=== PATIENT | male | born 1970 | race Caucasian/White ===

== ENCOUNTER 2019-08-01 16:00 | Inpatient (IN) | payer BC, OTHER ==
[2019-08-01] MEDS ORDERED: HYDROmorphone 0.5 MG/0.5 ML Syringe IVPUSH ONE (16:49)
[2019-08-01] MEDS ORDERED: Ondansetron 4 MG/2 ML SDV IVPUSH ONE (16:49)
[2019-08-01] MEDS ORDERED: Sodium Chloride 0.9% 1,000 ML IV ONE (16:49)
--- NOTE | 2019-08-01 16:54 | EDM.PDOC ---
ED HPI GENERAL MEDICAL PROBLEM - General Chief Complaint: Abdominal Pain Stated Complaint: MEDICAL Time Seen by Provider: 08/01/19 16:30 Source of Information: Reports: Patient, Other (Physician from [facility] called me ahead of time to review the patient with me) History Limitations: Reports: No Limitations - History of Present Illness INITIAL COMMENTS - FREE TEXT/NARRATIVE: Abdominal pain 3 days which started as periumbilical and now has moved to the lower abdomen. Initially evaluated in clinic where white blood cell count was noted to be 13,100 with normal electrolytes. Onset: Today Duration: Day(s): (3), Getting Worse Location: Reports: Abdomen Quality: Reports: Sharp Severity: Severe Lower Abdominal Pain Score (Numeric/FACES): 4 - Related Data Allergies Allergy/AdvReac Type Severity Reaction Status Date / Time Penicillins Allergy Hives Verified 08/01/19 16:25 Home Meds: Home Meds NK [No Known Home Meds] 08/01/19 [History] Past Medical History HEENT History: Reports: Allergic Rhinitis Respiratory History: Reports: Asthma Gastrointestinal History: Reports: Diverticulosis Musculoskeletal History: Reports: Fracture Immunologic History: Reports: Other (See Below) Other Immunologic History: MRSA cellulitis, healed right arm - Infectious Disease History Infectious Disease History: Reports: MRSA - Past Surgical History Musculoskeletal Surgical History: Reports: ORIF, Other (See Below) Other Musculoskeletal Surgeries/Procedures:: right ankle pins and screws Social & Family History - Tobacco Use Smoking Status *Q: Never Smoker - Caffeine Use Caffeine Use: Reports: Coffee - Recreational Drug Use Recreational Drug Use: No ED ROS GENERAL - Review of Systems Review Of Systems: See Below Constitutional: Reports: Fever, Malaise, Weakness, Decreased Appetite Respiratory: Denies: Shortness of Breath, Wheezing Cardiovascular: Denies: Chest Pain Endocrine: Reports: Fatigue GI/Abdominal: Reports: Abdominal Pain, Decreased Appetite. Denies: Vomiting Skin: Reports: No Symptoms Neurological: Reports: No Symptoms ED EXAM, GI/ABD - Physical Exam Exam: See Below Exam Limited By: No Limitations General Appearance: Alert, WD/WN Ears: Normal External Exam Nose: Normal Inspection Head: Atraumatic, Normocephalic Neck: Normal Inspection Respiratory/Chest: No Respiratory Distress, Lungs Clear Cardiovascular: Normal Peripheral Pulses, Tachycardia, Other (I count HR 120) GI/Abdominal Exam: Guarding (RLQ), Tender, Abnormal Bowel Sounds (reactive and high-pitched bowel sounds) (Male) Exam: No Hernia, Normal Inspection, Circumcised Extremities: Normal Inspection, Normal Range of Motion EKG INTERPRETATION EKG Date: 08/01/19 Time: 17:00 Rhythm: Other (Sinus tacycardia) P-Wave: Present QRS: Normal Course - Vital Signs Text/Narrative:: Marked tacycardia noted. 12 lead EKG c/W sinus tahcycardia. at [address] report was called which showed diverticulitis and no appendicitis, no abscess, and no perforation Last Recorded V/S: Last Vital Signs Temp 38.1 C 08/01/19 16:35 Pulse 91 08/01/19 17:40 Resp 12 08/01/19 17:40 BP 98/63 08/01/19 17:40 Pulse Ox 93 L 08/01/19 17:40 - Orders/Labs/Meds Orders: Active Orders 24 hr Category Date Time Status EKG Documentation Completion [RC] ASDIRECTED Care 08/01/19 16:55 Active Ciprofloxacin in D5W [Cipro in D5W 400 MG/200 ML] 400 Med 08/01/19 18:23 Ordered mg Premix Bag 1 bag IV ONETIME Iopamidol [Isovue-300 (61%)] Med 08/01/19 17:30 Active 150 ml IV . DIRECTED Sodium Chloride 0.9% [Normal Saline] 80 ml Med 08/01/19 17:30 Active IV ASDIRECTED metroNIDAZOLE/Normal Saline [Flagyl 500 MG in NS 100 ML Med 08/01/19 18:24 Ordered ] 500 mg Premix Bag 1 bag IV ONETIME EKG 12 Lead [EK] Urgent Ther 08/01/19 16:55 Ordered Medication Orders Sodium Chloride (Normal Saline) 80 mls @ 3 mls/sec IV ASDIRECTED [facility] Last Admin: 08/01/19 17:45 Dose: 3 mls/sec Documented by: MEE Ciprofloxacin/Dextrose 400 mg/ (Premix) 200 mls @ 200 mls/hr IV ONETIME ONE Stop: 08/01/19 19:22 Metronidazole 500 mg/ Premix 100 mls @ 100 mls/hr IV ONETIME ONE Stop: 08/01/19 19:23 Iopamidol (Isovue-300 (61%)) 150 ml IV . DIRECTED ANKIT Last Admin: 08/01/19 17:45 Dose: 150 ml Documented by: Upshot Meds: Medications Generic Name Dose Route Start Last Admin Trade Name Freq PRN Reason Stop Dose Admin Sodium Chloride 80 mls @ 3 mls/sec 08/01/19 17:30 08/01/19 17:45 Normal Saline IV 3 mls/sec ASDIRECTED ANKIT Administration Ciprofloxacin/Dextrose 400 mg/ 200 mls @ 200 mls/hr 08/01/19 18:23 Premix IV 08/01/19 19:22 ONETIME ONE Metronidazole 500 mg/ Premix 100 mls @ 100 mls/hr 08/01/19 18:24 IV 08/01/19 19:23 ONETIME ONE Iopamidol 150 ml 08/01/19 17:30 08/01/19 17:45 Isovue-300 (61%) IV 150 ml . DIRECTED ANKIT Administration Discontinued Medications Generic Name Dose Route Start Last Admin Trade Name Freq PRN Reason Stop Dose Admin Hydromorphone HCl 0.5 mg 08/01/19 16:49 08/01/19 17:33 Dilaudid IVPUSH 08/01/19 16:50 0.5 mg ONETIME ONE Administration Sodium Chloride 1,000 mls @ 999 mls/hr 08/01/19 16:49 08/01/19 17:51 Normal Saline IV 08/01/19 17:49 999 mls/hr .BOLUS ONE Administration Ondansetron HCl 4 mg 08/01/19 16:49 08/01/19 17:18 Zofran IVPUSH 08/01/19 16:50 4 mg ONETIME ONE Administration Departure - Departure Time of Disposition: 18:27 Disposition: Admitted As Inpatient 67 Clinical Impression: Diverticulitis - Discharge Information Referrals: PCP,None [Primary Care Provider] - Forms: ED Department Discharge Sepsis Event Note (ED) - Evaluation Sepsis Screening Result: Possible Sepsis Risk - Focused Exam Vital Signs: Vital Signs Temp Pulse Resp BP Pulse Ox 08/01/19 17:40 91 12 98/63 93 L 08/01/19 17:38 100 98/63 08/01/19 17:25 86 14 104/59 L 95 08/01/19 17:20 70 16 75/39 L 98 08/01/19 16:35 38.1 C 122 H 16 110/71 94 L 08/01/19 16:21 38.1 C 122 H 16 110/71 94 L - My Orders Last 24 Hours: My Active Orders 08/01/19 16:55 EKG Documentation Completion [RC] ASDIRECTED EKG 12 Lead [EK] Urgent 08/01/19 18:23 Ciprofloxacin in D5W [Cipro in D5W 400 MG/200 ML] 400 mg Premix Bag 1 bag IV ONETIME 08/01/19 18:24 metroNIDAZOLE/Normal Saline [Flagyl 500 MG in NS 100 ML] 500 mg Premix Bag 1 bag IV ONETIME - Assessment/Plan Last 24 Hours: My Active Orders 08/01/19 16:55 EKG Documentation Completion [RC] ASDIRECTED EKG 12 Lead [EK] Urgent 08/01/19 18:23 Ciprofloxacin in D5W [Cipro in D5W 400 MG/200 ML] 400 mg Premix Bag 1 bag IV ONETIME 08/01/19 18:24 metroNIDAZOLE/Normal Saline [Flagyl 500 MG in NS 100 ML] 500 mg Premix Bag 1 bag IV ONETIME
[2019-08-01] MEDS ORDERED: Iopamidol 612 MG/ML 150 ML Bottle IV SCH (17:30)
[2019-08-01] MEDS ORDERED: Sodium Chloride 0.9% 80 ML IV SCH (17:30)
--- NOTE | 2019-08-01 18:15 | CRLCT ---
INDICATION: Abdominal pain COMPARISON: None TECHNIQUE: CT examination of the abdomen and pelvis was performed following the uneventful intravenous administration of 150 cc of Isovue-300. Thin section axial images were obtained from the lung bases through the pubic symphysis. Oral contrast was not administered. Please note that all CT scans at this facility use dose modulation, iterative reconstruction, and/or weight-based dosing when appropriate to reduce radiation dose to as low as reasonably achievable. FINDINGS: LUNG BASES: The lung bases as visualized appear normal.The heart size is normal at the lung bases. LIVER/BILIARY SYSTEM:The liver is normal in size and configuration. There is no focal mass and there is no intra- or extra hepatic biliary ductal dilatation.The gall bladder appears normal. ADRENALS: Normal KIDNEYS, URETERS and BLADDER:The kidneys appear normal. No visible mass, calculus or hydronephrosis. The ureters and bladder as visualized appear normal. SPLEEN:Normal appearance. PANCREAS: Appears normal. RETROPERITONEUM and MESENTERY: There is no mass, adenopathy or aortic aneurysm. GASTROINTESTINAL SYSTEM: There are findings of relatively severe acute diverticulitis of a long segment of the sigmoid colon. There is wall thickening. As seen on the coronal plane, there is intramural fissuring within the wall with multiple gas clefts. There is significant inflammatory change in the region including surrounding the bladder. There is mild fluid in the area. There is also a secondary ileus of localized distal small bowel. There is no roberto collection and there is no roberto free air. PELVIS: No mass, adenopathy or free fluid. OSSEOUS STRUCTURES and ABDOMINAL WALL: There is an age-appropriate appearance of the osseous structures.No significant abdominal wall defect. IMPRESSION: Narrow or findings of relatively severe acute diverticulitis of a long segment of the sigmoid colon as described above. Please note that all CT scans at this facility use dose modulation, iterative reconstruction, and/or weight-based dosing when appropriate to reduce radiation dose to as low as reasonably achievable. Dictated by Yared Flowers MD @ Aug 01 2019 6:06PM Signed by Dr. Yared Flowers @ Aug 01 2019 6:13PM
[2019-08-01] MEDS ORDERED: Ciprofloxacin in D5W 400 MG in Premix Bag 1 BAG IV ONE ×2 (18:23)
[2019-08-01] MEDS ORDERED: metroNIDAZOLE/Normal Saline 500 MG in Premix Bag 1 BAG IV ONE (18:24)
[2019-08-01] MEDS: Sodium Chloride 0.9% 1,000 ML IV SCH (18:55)
--- NOTE | 2019-08-01 19:57 | PCM.HP.2 ---
H&P History of Present Illness - General Date of Service: 08/01/19 Admit Problem/Dx: Admission Diagnosis/Problem Admission Diagnosis/Problem Diverticulitis Source of Information: Patient, Family (Dad at bedside) History Limitations: Reports: No Limitations - History of Present Illness Initial Comments - Free Text/Narative: chief complaint: abdominal pain This is a 49 year old male presents to the ER for evaluation of abdominal pain. He reports having abdominal pain for the past 36 hours getting worse. He has generalized abdominal pain, unable to eat since yesterday, stool looks like mucous but no blood or dark stool is noted. He was seen at [facility], then referred to the ER for acute abdomen. Labs WBC >13,000, chemistries normal range. CT scan show normal appendix and inflammation of GI Tract without abscess or perforation but consistent with Diverticulitis. advised to admitted to hospital. family history: Sister with chrons, Uncles with GI Tract problems. Onset of Symptoms: Reports: Gradual Symptom Onset Date: 07/30/19 Duration of Symptoms: Reports: Day(s):, Constant, Getting Worse Location: Reports: Abdomen Quality: Reports: Ache, Sharp Severity: Moderate Improves with: Reports: Medication (medication given in ER for pain control) Worsens with: Reports: Eating (last meal yesterday) Context: Reports: Other (abdominal pain x 36 hours.) Associated Symptoms: Reports: Fever/Chills, Loss of Appetite, Nausea/Vomiting (nausea without vomiting) Lower Abdominal Pain Score (Numeric/FACES): 4 - Related Data Allergies/Adverse Reactions: Allergies Allergy/AdvReac Type Severity Reaction Status Date / Time Penicillins Allergy Hives Verified 08/01/19 20:28 Home Medications: Home Meds NK [No Known Home Meds] 08/01/19 [History] Past Medical History HEENT History: Reports: Allergic Rhinitis Respiratory History: Reports: Asthma Gastrointestinal History: Reports: Diverticulosis Musculoskeletal History: Reports: Fracture Immunologic History: Reports: Other (See Below) Other Immunologic History: MRSA cellulitis, healed right arm - Infectious Disease History Infectious Disease History: Reports: MRSA - Past Surgical History Musculoskeletal Surgical History: Reports: ORIF, Other (See Below) Other Musculoskeletal Surgeries/Procedures:: right ankle pins and screws Social & Family History - Tobacco Use Smoking Status *Q: Never Smoker - Caffeine Use Caffeine Use: Reports: Coffee - Recreational Drug Use Recreational Drug Use: No - Living Situation & Occupation Living situation: Reports: , with Family Occupation: Employed (lives in [place] with and 4 children, works at home, here on vacation for one month - staying with Dad in [facility].) H&P Review of Systems - Review of Systems: Review Of Systems: See Below General: Reports: Fever, Chills, Malaise, Fatigue, Decreased Appetite, Other (abdominal pain. ) HEENT: Reports: No Symptoms Pulmonary: Reports: No Symptoms Cardiovascular: Reports: No Symptoms Gastrointestinal: Reports: Abdominal Pain, Decreased Appetite, Mucous in Stool, Nausea Genitourinary: Reports: No Symptoms Musculoskeletal: Reports: No Symptoms Skin: Reports: No Symptoms Psychiatric: Reports: No Symptoms Neurological: Reports: No Symptoms Hematologic/Lymphatic: Reports: No Symptoms Immunologic: Reports: No Symptoms Exam - Exam Exam: See Below - Vital Signs Vital Signs: Last Vital Signs Temp 38.1 C 08/01/19 16:35 Pulse 91 08/01/19 17:40 Resp 12 08/01/19 17:40 BP 98/63 08/01/19 17:40 Pulse Ox 93 L 08/01/19 17:40 Weight: 99.6 kg - Exam Quality Assessment: DVT Prophylaxis General: Alert, Oriented, Cooperative HEENT: PERRLA, Conjunctiva Clear, EACs Clear, EOMI, Hearing Intact, Mucosa Moist & [place], Nares Patent, Normal Nasal Septum, Posterior Pharynx Clear, TMs Clear, Glasses, Other (natural teeth) Neck: Supple, Trachea Midline, 2 Lungs: Clear to Auscultation, Normal Respiratory Effort Cardiovascular: Regular Rate, Regular Rhythm, Normal S1, Normal S2 GI/Abdominal Exam: Soft, No Mass, Tender, Other (generalized abdominal pain. hypoactive bowel sounds.) (Male) Exam: Deferred Rectal (Males) Exam: Deferred Back Exam: Normal Inspection, Full Range of Motion Extremities: Normal Inspection, Normal Range of Motion, Non-Tender, No Pedal Edema, Normal Capillary Refill Peripheral Pulses: 2+: Radial (L), Radial (R), Dorsalis Pedis (L), Dorsalis Pedis (R) Skin: Warm, Dry, Intact Neurological: Cranial Nerves Intact, Strength Equal Bilateral Neuro Extensive - Mental Status: Alert, Oriented x3, Normal Mood/Affect, Normal Cognition Neuro Extensive - Motor, Sensory, Reflexes: CN II-XII Intact Psychiatric: Alert, Normal Affect, Normal Mood - Patient Data Result Diagrams: 08/01/19 20:55 08/01/19 20:55 Sepsis Event Note - Evaluation Sepsis Screening Result: Possible Sepsis Risk - Focused Exam Vital Signs: Vital Signs Temp Pulse Resp BP Pulse Ox 08/01/19 17:40 91 12 98/63 93 L 08/01/19 17:38 100 98/63 08/01/19 17:25 86 14 104/59 L 95 08/01/19 17:20 70 16 75/39 L 98 08/01/19 16:35 38.1 C 122 H 16 110/71 94 L 08/01/19 16:21 38.1 C 122 H 16 110/71 94 L Date Exam was Performed: 08/01/19 Time Exam was Performed: 21:39 - Problem List (1) Diverticulitis SNOMED Code(s): 085095892 ICD Code: K57.92 - DVTRCLI OF INTEST, PART UNSP, W/O PERF OR ABSCESS W/O BLEED Status: Acute Priority: High Current Visit: Yes Problem List Initiated/Reviewed/Updated: Yes Orders Last 24hrs: Active Orders 24 hr Category Date Time Status Patient Status Manage Transfer [TRANSFER] Routine ADT 08/01/19 18:38 Active EKG Documentation Completion [RC] ASDIRECTED Care 08/01/19 16:55 Active Iopamidol [Isovue-300 (61%)] Med 08/01/19 17:30 Active 150 ml IV . DIRECTED Sodium Chloride 0.9% [Normal Saline] 80 ml Med 08/01/19 17:30 Active IV ASDIRECTED Resuscitation Status Routine Resus Stat 08/01/19 18:39 Ordered EKG 12 Lead [EK] Urgent Ther 08/01/19 16:55 Ordered Medication Orders Sodium Chloride (Normal Saline) 80 mls @ 3 mls/sec IV ASDIRECTED ANKIT Last Admin: 08/01/19 17:45 Dose: 3 mls/sec Documented by: MEE Iopamidol (Isovue-300 (61%)) 150 ml IV . DIRECTED ANKIT Last Admin: 08/01/19 17:45 Dose: 150 ml Documented by: MEE Assessment/Plan Comment:: ASSESSMENT / PLAN: Diverticulitis This is a 49 year old male presents to the ER for evaluation of abdominal pain. He reports having abdominal pain for the past 36 hours getting worse. He has generalized abdominal pain, unable to eat since yesterday, stool looks like mucous but no blood or dark stool is noted. He was seen at [facility], then referred to the ER for acute abdomen. Labs WBC >13,000, chemistries normal range. CT scan show normal appendix and inflammation of GI Tract without abscess or perforation but consistent with Diverticulitis. advised to admitted to hospital. family history: Sister with chrohns, Uncles with GI Tract problems. DIVERTICULITIS -Admit to ICU Med-surg overflow for further monitoring -IV Fluids Normal Saline at 125 mL per hour -IV Morphine 2 mg every 2 hours for pain control -PO Percocet 5-325mg 2 tabs every 4 hours less acute pain -anti nausea medication ordered -diet clear liquids advance as tolerated -Advise to notify nurses of any fever or worsen pain -And a.m. labs: CBC, BMP Maintenance issues -Orders home meds -Nutrition: Clear -Duarte catheter not indicated at this time -DVT: SCD -PPI; IV Protonix 40mg bid -sleep - Melatonin 6 mg at hs prn CODE STATUS: FULL Admission status: Admit to ICU med-surg overflow This Patient is Admitted for Inpatient Services and is Medically Appropriate and Meets Medical Necessity for Inpatient Admission. I Reasonably Expect the Patient will Require Inpatient Services that Span a Period of Over 2 Midnights. My Rationale for Medically Necessary Inpatient Care will be Found in the Admission History & Physical and Progress Notes. I Reasonably Expect the Patient to be Discharged or Transferred within 96 Hours After Admission to this Critical [facility] Hospital. Disposition: home Primary care provider: [facility] Hospitalist: Dr. Lopez - Mortality Measure Prognosis:: Good
[2019-08-01] MEDS ORDERED: Albuterol 0.083% 2.5 MG/3 ML Neb Soln NEB PRN (20:42)
[2019-08-01] MEDS ORDERED: Ondansetron 4 MG/2 ML SDV IV PRN (20:42)
[2019-08-01] MEDS ORDERED: Melatonin 3 MG Tab PO PRN (20:42)
[2019-08-01] MEDS ORDERED: LORazepam 2 MG/ML SDV IV PRN (20:42)
[2019-08-01] MEDS ORDERED: Ondansetron 4 MG Tab.DIS PO PRN (20:42)
[2019-08-01] MEDS ORDERED: Docusate Sodium 100 MG Cap PO PRN (20:42)
[2019-08-01] MEDS ORDERED: Bisacodyl 5 MG Tab PO PRN (20:42)
[2019-08-01] MEDS: Morphine 2 MG/ML Syringe IVPUSH PRN ×2 (21:13→23:40)
[2019-08-01] MEDS: Pantoprazole 40 MG Vial IV SCH (21:51)
[2019-08-02] MEDS: metroNIDAZOLE/Normal Saline 500 MG in Premix Bag 1 BAG IV SCH ×3 (03:56→19:52)
[2019-08-02] MEDS: oxyCODONE 5 MG Tab PO PRN ×2 (04:01→21:05)
[2019-08-02] MEDS: Sodium Chloride 0.9% 1,000 ML IV SCH ×2 (04:04→15:33)
[2019-08-02] MEDS: Pantoprazole 40 MG Vial IV SCH ×2 (09:23→20:57)
[2019-08-02] MEDS: Ciprofloxacin in D5W 400 MG in Premix Bag 1 BAG IV SCH ×4 (09:23→20:57)
--- NOTE | 2019-08-02 10:02 | PCM.PN ---
- General Info Date of Service: 08/02/19 Subjective Update: Mr. Guo is a 49-year-old gentleman who was admitted through the emergency department with left lower quadrant abdominal pain secondary to diverticulitis. He had experienced the pain for about 36 hours prior to admission. White blood cell count was noted to be elevated in the emergency department and CT scan documents relatively severe diverticulitis. There was no evidence of abscess or perforation. He has been stable since admission and notes a modest improvement in pain. White blood cell count has improved from admission. Functional Status: Reports: Tolerating Diet, Urinating - Review of Systems General: Reports: Fever, Weakness, Chills Pulmonary: Reports: No Symptoms Cardiovascular: Reports: No Symptoms Gastrointestinal: Reports: Abdominal Pain. Denies: Difficulty Swallowing, Hematochezia, Melena, Nausea, Vomiting - Patient Data Vitals - Most Recent: Last Vital Signs Temp 101.0 F H 08/02/19 04:00 Pulse 70 08/02/19 08:00 Resp 13 08/02/19 08:00 BP 114/58 L 08/02/19 08:00 Pulse Ox 93 L 08/02/19 08:00 Weight - Most Recent: 219 lb 9.286 oz I&O - Last 24 Hours: Intake & Output 08/01/19 08/02/19 08/02/19 22:59 06:59 14:59 Intake Total 2300 Balance 2300 Lab Results Last 24 Hours: Laboratory Results - last 24 hr 08/01/19 08/01/19 08/01/19 Range/Units 20:55 20:55 20:55 WBC 14.3 H (4.5-11.0) K/uL RBC 4.75 (4.30-5.90) M/uL Hgb 13.8 (12.0-15.0) g/dL Hct 42.6 (40.0-54.0) % MCV 90 (80-98) fL MCH 29 (27-31) pg MCHC 32 (32-36) % Plt Count 194 (150-400) K/uL Neut % (Auto) 81 H (36-66) % Lymph % (Auto) 9 L (24-44) % [place] % (Auto) 10 H (2-6) % Eos % (Auto) 0 L (2-4) % Baso % (Auto) 0 (0-1) % Sodium 138 L (140-148) mmol/L Potassium 3.9 (3.6-5.2) mmol/L Chloride 102 (100-108) mmol/L Carbon Dioxide 25 (21-32) mmol/L Anion Gap 14.9 H (5.0-14.0) mmol/L BUN 15 (7-18) mg/dL Creatinine 1.1 (0.8-1.3) mg/dL Est Cr Clr Drug Dosing 95.48 mL/min Estimated GFR (MDRD) > 60 (>60) Glucose 105 (74-106) mg/dL Lactic Acid 1.2 (0.4-2.0) mmol/L Calcium 8.5 (8.5-10.1) mg/dL Magnesium 1.9 (1.8-2.4) mg/dL Amylase 47 (25-115) U/L Lipase 99 (73-393) U/L 08/02/19 08/02/19 Range/Units 04:40 04:40 WBC 12.2 H (4.5-11.0) K/uL RBC 4.27 L (4.30-5.90) M/uL Hgb 12.6 (12.0-15.0) g/dL Hct 38.7 L (40.0-54.0) % MCV 91 (80-98) fL MCH 30 (27-31) pg MCHC 33 (32-36) % Plt Count 173 (150-400) K/uL Neut % (Auto) 70 H (36-66) % Lymph % (Auto) 16 L (24-44) % [place] % (Auto) 14 H (2-6) % Eos % (Auto) 0 L (2-4) % Baso % (Auto) 0 (0-1) % Sodium 137 L (140-148) mmol/L Potassium 3.7 (3.6-5.2) mmol/L Chloride 103 (100-108) mmol/L Carbon Dioxide 27 (21-32) mmol/L Anion Gap 10.7 (5.0-14.0) mmol/L BUN 15 (7-18) mg/dL Creatinine 1.0 (0.8-1.3) mg/dL Est Cr Clr Drug Dosing 105.03 mL/min Estimated GFR (MDRD) > 60 (>60) Glucose 100 (74-106) mg/dL Lactic Acid (0.4-2.0) mmol/L Calcium 8.1 L (8.5-10.1) mg/dL Magnesium (1.8-2.4) mg/dL Amylase (25-115) U/L Lipase (73-393) U/L Med Orders - Current: Current Medications Acetaminophen (Tylenol) 650 mg PO Q4H PRN PRN Reason: Pain (Mild 1-3)/fever Albuterol (Proventil Neb Soln) 2.5 mg NEB Q4H PRN PRN Reason: Shortness Of Breath/wheezing Bisacodyl (Dulcolax) 5 mg PO DAILY PRN PRN Reason: Constipation Docusate Sodium (Colace) 100 mg PO BID PRN PRN Reason: Constipation Sodium Chloride (Normal Saline) 1,000 mls @ 125 mls/hr IV ASDIRECTED [facility] Last Admin: 08/02/19 04:04 Dose: 125 mls/hr Documented by: Ciprofloxacin/Dextrose 400 mg/ (Premix) 200 mls @ 200 mls/hr IV Q12H [facility] Last Admin: 08/02/19 09:23 Dose: 200 mls/hr Documented by: Metronidazole 500 mg/ Premix 100 mls @ 100 mls/hr IV Q8H [facility] Last Admin: 08/02/19 03:56 Dose: 100 mls/hr Documented by: Lorazepam (Ativan) 1 mg IV Q6H PRN PRN Reason: Nausea/Vomiting Melatonin (Melatonin) 6 mg PO BEDTIME PRN PRN Reason: Insomnia Morphine Sulfate (Morphine) 2 mg IVPUSH Q2H PRN PRN Reason: Pain (severe 7-10) Last Admin: 08/01/19 23:40 Dose: 2 mg Documented by: Ondansetron HCl (Zofran Odt) 4 mg PO Q6H PRN PRN Reason: Nausea able to take PO Ondansetron HCl (Zofran) 4 mg IV Q4H PRN PRN Reason: Nausea/Vomiting Oxycodone HCl (Oxycodone) 10 mg PO Q4H PRN PRN Reason: Pain (moderate 4-6) Last Admin: 08/02/19 04:01 Dose: 10 mg Documented by: Pantoprazole Sodium (Protonix Iv) 40 mg IV Q12H [facility] Last Admin: 08/02/19 09:23 Dose: 40 mg Documented by: Discontinued Medications Hydromorphone HCl (Dilaudid) 0.5 mg IVPUSH ONETIME ONE Stop: 08/01/19 16:50 Last Admin: 08/01/19 17:33 Dose: 0.5 mg Documented by: Sodium Chloride (Normal Saline) 1,000 mls @ 999 mls/hr IV .BOLUS ONE Stop: 08/01/19 17:49 Last Admin: 08/01/19 17:51 Dose: 999 mls/hr Documented by: Sodium Chloride (Normal Saline) 80 mls @ 3 mls/sec IV ASDIRECTED [facility] Last Admin: 08/01/19 17:45 Dose: 3 mls/sec Documented by: Ciprofloxacin/Dextrose 400 mg/ (Premix) 200 mls @ 200 mls/hr IV ONETIME ONE Stop: 08/01/19 19:22 Last Admin: 08/01/19 20:37 Dose: 200 mls/hr Documented by: Metronidazole 500 mg/ Premix 100 mls @ 100 mls/hr IV ONETIME ONE Stop: 08/01/19 19:23 Last Admin: 08/01/19 19:26 Dose: 100 mls/hr Documented by: Iopamidol (Isovue-300 (61%)) 150 ml IV . DIRECTED [facility] Last Admin: 08/01/19 17:45 Dose: 150 ml Documented by: Ondansetron HCl (Zofran) 4 mg IVPUSH ONETIME ONE Stop: 08/01/19 16:50 Last Admin: 08/01/19 17:18 Dose: 4 mg Documented by: - Exam General: Alert, Oriented, Cooperative, Moderate Distress Lungs: Clear to Auscultation, Normal Respiratory Effort Cardiovascular: Regular Rate, Regular Rhythm, No Murmurs GI/Abdominal Exam: Soft, No Organomegaly, Distended, Tender. No: Guarding, Rigid, Rebound Sepsis Event Note - Evaluation Sepsis Screening Result: No Definite Risk - Focused Exam Vital Signs: Vital Signs Temp Pulse Resp BP Pulse Ox 08/02/19 08:00 70 13 114/58 L 93 L 08/02/19 07:29 91 L 08/02/19 04:00 101.0 F H 76 15 114/58 L 96 08/02/19 00:06 100.0 F 77 16 119/57 L 96 Date Exam was Performed: 08/02/19 Time Exam was Performed: 09:58 - Problem List Review Problem List Initiated/Reviewed/Updated: Yes - My Orders Last 24 Hours: My Active Orders 08/02/19 09:57 WHITE BLOOD CELL COUNT,WBC [HEME] DAILY - Plan Plan:: ASSESSMENT / PLAN DIVERTICULITIS -IV Fluids Normal Saline at 125 mL per hour -IV ciprofloxacin and Flagyl -IV Morphine 2 mg every 2 hours for pain control -PO Percocet 5-325mg 2 tabs every 4 hours less acute pain -anti nausea medication ordered -diet clear liquids Maintenance issues -Orders home meds -Nutrition: Clear -Duarte catheter not indicated at this time -DVT: SCD -PPI; IV Protonix 40mg daily -sleep - Melatonin 6 mg at hs prn CODE STATUS: FULL Admission status: Admit to ICU med-surg overflow This Patient is Admitted for Inpatient Services and is Medically Appropriate and Meets Medical Necessity for Inpatient Admission. I Reasonably Expect the Patient will Require Inpatient Services that Span a Period of Over 2 Midnights. My Rationale for Medically Necessary Inpatient Care will be Found in the Admission History & Physical and Progress Notes. I Reasonably Expect the Patient to be Discharged or Transferred within 96 Hours After Admission to this [facility] Hospital. Disposition: home Primary care provider: [facility] Hospitalist: Dr. Lopez
[2019-08-02] MEDS: Acetaminophen 325 MG Tab PO PRN ×2 (15:32→19:51)
[2019-08-03] MEDS: Sodium Chloride 0.9% 1,000 ML IV SCH (01:20)
[2019-08-03] MEDS: metroNIDAZOLE/Normal Saline 500 MG in Premix Bag 1 BAG IV SCH ×3 (03:18→19:38)
[2019-08-03] MEDS: Acetaminophen 325 MG Tab PO PRN ×2 (03:19→08:43)
[2019-08-03] MEDS: Pantoprazole 40 MG Vial IV SCH (08:15)
[2019-08-03] MEDS: Ciprofloxacin in D5W 400 MG in Premix Bag 1 BAG IV SCH ×4 (08:15→20:50)
--- NOTE | 2019-08-03 13:55 | PCM.PN ---
- General Info Date of Service: 08/03/19 Subjective Update: Mr. Guo is felt further improvement since yesterday, abdominal pain is almost totally resolved and he has had no symptoms of nausea. Vital signs have remained stable and he has been afebrile. Functional Status: Reports: Tolerating Diet, Ambulating, Urinating - Review of Systems General: Denies: Fever, Chills Pulmonary: Reports: No Symptoms Cardiovascular: Reports: No Symptoms Gastrointestinal: Reports: Abdominal Pain. Denies: Difficulty Swallowing, Nausea, Vomiting - Patient Data Vitals - Most Recent: Last Vital Signs Temp 96.6 F L 08/03/19 08:00 Pulse 61 08/03/19 08:00 Resp 18 08/03/19 08:00 BP 117/74 08/03/19 08:00 Pulse Ox 97 08/03/19 08:00 Weight - Most Recent: 219 lb I&O - Last 24 Hours: Intake & Output 08/02/19 08/03/19 08/03/19 22:59 06:59 14:59 Intake Total 1700 1468 200 Balance 1700 1468 200 Med Orders - Current: Current Medications Acetaminophen (Tylenol) 650 mg PO Q4H PRN PRN Reason: Pain (Mild 1-3)/fever Last Admin: 08/03/19 08:43 Dose: 650 mg Documented by: Albuterol (Proventil Neb Soln) 2.5 mg NEB Q4H PRN PRN Reason: Shortness Of Breath/wheezing Bisacodyl (Dulcolax) 5 mg PO DAILY PRN PRN Reason: Constipation Docusate Sodium (Colace) 100 mg PO BID PRN PRN Reason: Constipation Ciprofloxacin/Dextrose 400 mg/ (Premix) 200 mls @ 200 mls/hr IV Q12H [facility] Last Admin: 08/03/19 08:15 Dose: 200 mls/hr Documented by: Metronidazole 500 mg/ Premix 100 mls @ 100 mls/hr IV Q8H [facility] Last Admin: 08/03/19 11:59 Dose: 100 mls/hr Documented by: Melatonin (Melatonin) 6 mg PO BEDTIME PRN PRN Reason: Insomnia Ondansetron HCl (Zofran Odt) 4 mg PO Q6H PRN PRN Reason: Nausea able to take PO Ondansetron HCl (Zofran) 4 mg IV Q4H PRN PRN Reason: Nausea/Vomiting Oxycodone HCl (Oxycodone) 10 mg PO Q4H PRN PRN Reason: Pain (moderate 4-6) Last Admin: 08/02/19 21:05 Dose: 10 mg Documented by: Discontinued Medications Hydromorphone HCl (Dilaudid) 0.5 mg IVPUSH ONETIME ONE Stop: 08/01/19 16:50 Last Admin: 08/01/19 17:33 Dose: 0.5 mg Documented by: Sodium Chloride (Normal Saline) 1,000 mls @ 999 mls/hr IV .BOLUS ONE Stop: 08/01/19 17:49 Last Admin: 08/01/19 17:51 Dose: 999 mls/hr Documented by: Sodium Chloride (Normal Saline) 80 mls @ 3 mls/sec IV ASDIRECTED [facility] Last Admin: 08/01/19 17:45 Dose: 3 mls/sec Documented by: Ciprofloxacin/Dextrose 400 mg/ (Premix) 200 mls @ 200 mls/hr IV ONETIME ONE Stop: 08/01/19 19:22 Last Admin: 08/01/19 20:37 Dose: 200 mls/hr Documented by: Metronidazole 500 mg/ Premix 100 mls @ 100 mls/hr IV ONETIME ONE Stop: 08/01/19 19:23 Last Admin: 08/01/19 19:26 Dose: 100 mls/hr Documented by: Sodium Chloride (Normal Saline) 1,000 mls @ 125 mls/hr IV ASDIRECTED [facility] Last Admin: 08/03/19 01:20 Dose: 125 mls/hr Documented by: Iopamidol (Isovue-300 (61%)) 150 ml IV . DIRECTED [facility] Last Admin: 08/01/19 17:45 Dose: 150 ml Documented by: Lorazepam (Ativan) 1 mg IV Q6H PRN PRN Reason: Nausea/Vomiting Morphine Sulfate (Morphine) 2 mg IVPUSH Q2H PRN PRN Reason: Pain (severe 7-10) Last Admin: 08/01/19 23:40 Dose: 2 mg Documented by: Ondansetron HCl (Zofran) 4 mg IVPUSH ONETIME ONE Stop: 08/01/19 16:50 Last Admin: 08/01/19 17:18 Dose: 4 mg Documented by: Pantoprazole Sodium (Protonix Iv) 40 mg IV Q12H [facility] Last Admin: 08/03/19 08:15 Dose: 40 mg Documented by: - Exam General: Alert, Oriented, Cooperative, Mild Distress Lungs: Clear to Auscultation, Normal Respiratory Effort Cardiovascular: Regular Rate, Regular Rhythm, No Murmurs GI/Abdominal Exam: Soft, No Organomegaly, Tender. No: Distended, Guarding, Rigid, Rebound Extremities: Non-Tender, No Pedal Edema Sepsis Event Note - Evaluation Sepsis Screening Result: No Definite Risk - Focused Exam Vital Signs: Vital Signs Temp Pulse Resp BP Pulse Ox 08/03/19 08:00 96.6 F L 61 18 117/74 97 08/03/19 03:14 98.5 F 76 16 120/65 100 Date Exam was Performed: 08/03/19 Time Exam was Performed: 13:53 - Problem List Review Problem List Initiated/Reviewed/Updated: Yes - My Orders Last 24 Hours: My Active Orders 08/03/19 Lunch GI Soft Low Fiber [Soft Diet] [DIET] 08/03/19 13:48 Convert IV to Saline Lock [OM.PC] Routine - Plan Plan:: ASSESSMENT / PLAN DIVERTICULITIS -Saline lock IV -IV ciprofloxacin and Flagyl -PO Percocet 5-325mg 2 tabs every 4 hours less acute pain -anti nausea medication ordered -Soft low residue diet Maintenance issues -Orders home meds -Nutrition: Soft low residue diet -Duarte catheter not indicated at this time -DVT: SCD -PPI; not indicated -sleep - Melatonin 6 mg at hs prn CODE STATUS: FULL Admission status: Admit to ICU med-surg overflow This Patient is Admitted for Inpatient Services and is Medically Appropriate and Meets Medical Necessity for Inpatient Admission. I Reasonably Expect the Patient will Require Inpatient Services that Span a Period of Over 2 Midnights. My Rationale for Medically Necessary Inpatient Care will be Found in the Admission History & Physical and Progress Notes. I Reasonably Expect the Patient to be Discharged or Transferred within 96 Hours After Admission to this Critical Access Hospital. Disposition: home Primary care provider: [facility] Hospitalist: Dr. Lopez
[2019-08-03] MEDS ORDERED: Zolpidem 5 MG Tab PO PRN (13:56)
[2019-08-04] MEDS: metroNIDAZOLE/Normal Saline 500 MG in Premix Bag 1 BAG IV SCH ×2 (03:23→11:10)
[2019-08-04] MEDS: Ciprofloxacin in D5W 400 MG in Premix Bag 1 BAG IV SCH ×2 (09:02)
--- NOTE | 2019-08-04 11:26 | PCM.DCSUM1 ---
Discharge Summary - Hospital Course Brief History: Mr. Guo is a 49-year-old gentleman who was admitted through the emergency department with left lower quadrant abdominal pain secondary to diverticulitis. - Discharge Data Discharge Date: 08/04/19 Discharge Disposition: Home, Self-Care 01 Condition: Stable - Referral to Home Health Primary Care Physician: PCP None - Discharge Diagnosis/Problem(s) (1) Diverticulitis SNOMED Code(s): 375321554 ICD Code: K57.92 - DVTRCLI OF INTEST, PART UNSP, W/O PERF OR ABSCESS W/O BLEED Status: Acute Priority: High Current Visit: Yes - Patient Summary/Data Hospital Course: Mr. Guo is a 49-year-old gentleman who was admitted through the emergency department with left lower quadrant abdominal pain secondary to diverticulitis. He had experienced the pain for about 36 hours prior to admission. White blood cell count was noted to be elevated in the emergency department and CT scan documents relatively severe diverticulitis. There was no evidence of abscess or perforation. On admission he was given IV fluids for hydration and started on IV antibiotic therapy with ciprofloxacin and metronidazole. He was placed on a clear liquid diet, this was advanced and by the time of discharge was tolerating a soft low residue diet. White blood cell count normalized and he was afebrile for 48 hours prior to discharge. Abdominal pain had almost totally resolved by the time of discharge. He will be discharged home with an additional 7 days of oral antibiotic therapy with ciprofloxacin and metronidazole. Activity will be as tolerated and he will remain on a soft low residue diet over the next 2 weeks. Following that he should begin a high-fiber diet. He should have a follow-up appointment with primary care after he returns to [place]. Colonoscopy should be obtained within the next month or 2 for follow-up of the diverticulitis. He should return immediately to the emergency department if he notes recurrent pain fever or other symptoms. - Patient Instructions Diet: GI Soft/Low Residue/Low Fiber Activity: As Tolerated Other/Special Instructions: Low up with primary care provider in [place] when he returns home. Colonoscopy in 1 month. - Discharge Plan *PRESCRIPTION DRUG MONITORING PROGRAM REVIEWED*: Not Applicable *COPY OF PRESCRIPTION DRUG MONITORING REPORT IN PATIENT GREGORIO: Not Applicable Prescriptions/Med Rec: Ciprofloxacin HCl [Cipro] 500 mg PO BID #14 tablet metroNIDAZOLE [Flagyl] 500 mg PO Q8H #21 tab Home Medications: Home Meds Ciprofloxacin HCl [Cipro] 500 mg PO BID #14 tablet 08/04/19 [Rx] metroNIDAZOLE [Flagyl] 500 mg PO Q8H #21 tab 08/04/19 [Rx] Patient Handouts: Diverticulitis, [id number], Low-Fiber Eating Plan - Discharge Summary/Plan Comment DC Time >30 min.: No - Patient Data Vitals - Most Recent: Last Vital Signs Temp 96.1 F L 08/04/19 10:45 Pulse 71 08/04/19 11:14 Resp 18 08/04/19 11:14 BP 105/84 08/04/19 11:14 Pulse Ox 99 08/04/19 11:14 Weight - Most Recent: 219 lb I&O - Last 24 hours: Intake & Output 08/03/19 08/04/19 08/04/19 22:59 06:59 14:59 Intake Total 500 650 Balance 500 650 Med Orders - Current: Current Medications Acetaminophen (Tylenol) 650 mg PO Q4H PRN PRN Reason: Pain (Mild 1-3)/fever Last Admin: 08/03/19 08:43 Dose: 650 mg Documented by: Albuterol (Proventil Neb Soln) 2.5 mg NEB Q4H PRN PRN Reason: Shortness Of Breath/wheezing Bisacodyl (Dulcolax) 5 mg PO DAILY PRN PRN Reason: Constipation Docusate Sodium (Colace) 100 mg PO BID PRN PRN Reason: Constipation Ciprofloxacin/Dextrose 400 mg/ (Premix) 200 mls @ 200 mls/hr IV Q12H [facility] Last Admin: 08/04/19 09:02 Dose: 200 mls/hr Documented by: Metronidazole 500 mg/ Premix 100 mls @ 100 mls/hr IV Q8H [facility] Last Admin: 08/04/19 11:10 Dose: 100 mls/hr Documented by: Ondansetron HCl (Zofran Odt) 4 mg PO Q6H PRN PRN Reason: Nausea able to take PO Ondansetron HCl (Zofran) 4 mg IV Q4H PRN PRN Reason: Nausea/Vomiting Oxycodone HCl (Oxycodone) 10 mg PO Q4H PRN PRN Reason: Pain (moderate 4-6) Last Admin: 08/02/19 21:05 Dose: 10 mg Documented by: Zolpidem Tartrate (Ambien) 5 mg PO BEDTIME PRN PRN Reason: Insomnia Discontinued Medications Hydromorphone HCl (Dilaudid) 0.5 mg IVPUSH ONETIME ONE Stop: 08/01/19 16:50 Last Admin: 08/01/19 17:33 Dose: 0.5 mg Documented by: Sodium Chloride (Normal Saline) 1,000 mls @ 999 mls/hr IV .BOLUS ONE Stop: 08/01/19 17:49 Last Admin: 08/01/19 17:51 Dose: 999 mls/hr Documented by: Sodium Chloride (Normal Saline) 80 mls @ 3 mls/sec IV ASDIRECTED [facility] Last Admin: 08/01/19 17:45 Dose: 3 mls/sec Documented by: Ciprofloxacin/Dextrose 400 mg/ (Premix) 200 mls @ 200 mls/hr IV ONETIME ONE Stop: 08/01/19 19:22 Last Admin: 08/01/19 20:37 Dose: 200 mls/hr Documented by: Metronidazole 500 mg/ Premix 100 mls @ 100 mls/hr IV ONETIME ONE Stop: 08/01/19 19:23 Last Admin: 08/01/19 19:26 Dose: 100 mls/hr Documented by: Sodium Chloride (Normal Saline) 1,000 mls @ 125 mls/hr IV ASDIRECTED [facility] Last Admin: 08/03/19 01:20 Dose: 125 mls/hr Documented by: Iopamidol (Isovue-300 (61%)) 150 ml IV . DIRECTED [facility] Last Admin: 08/01/19 17:45 Dose: 150 ml Documented by: Lorazepam (Ativan) 1 mg IV Q6H PRN PRN Reason: Nausea/Vomiting Melatonin (Melatonin) 6 mg PO BEDTIME PRN PRN Reason: Insomnia Morphine Sulfate (Morphine) 2 mg IVPUSH Q2H PRN PRN Reason: Pain (severe 7-10) Last Admin: 08/01/19 23:40 Dose: 2 mg Documented by: Ondansetron HCl (Zofran) 4 mg IVPUSH ONETIME ONE Stop: 08/01/19 16:50 Last Admin: 08/01/19 17:18 Dose: 4 mg Documented by: Pantoprazole Sodium (Protonix Iv) 40 mg IV Q12H [facility] Last Admin: 08/03/19 08:15 Dose: 40 mg Documented by: - Exam General: Reports: Alert, Oriented, Cooperative, No Acute Distress GI/Abdominal Exam: Soft, Non-Tender, No Organomegaly, No Distention
== END 2019-08-04 12:15 | disposition home or self-care (01) | DRG 392 ==
LOC: JP.ED 16:00 → JP.ICU 18:38 → JP.MS 08-02 16:40
PROVIDERS: ADMIT Hospitalist; ATTEND Hospitalist
DX: K57.32 Diverticulitis of large intestine without perforation or abscess without bleeding (principal); J45.909 Unspecified asthma, uncomplicated; Z88.0 Allergy status to penicillin
CPT/HCPCS: 36415; 74177; 80048; 82150; 83605; 83690; 83735; 85025; 85048; 93005; 96361; 96374; 96375; 99285-25; A9270-GY; C9113; J0744; J1170; J2270; J2405; J3490; J7030; J7050; Q9967